=== PATIENT | male | born 1995 | race Two or more races ===

== ENCOUNTER 2023-01-25 17:29 | Emergency (ER) | payer OTHER ==
[~2023-01-25] VITALS: Ht 167.6 cm; Wt 65.8 kg
== END 2023-01-25 19:09 | disposition home or self-care (01) ==
LOC: ER 17:29
DX: S81.812A Laceration without foreign body, left lower leg, initial encounter (principal); W45.8XXA Other foreign body or object entering through skin, initial encounter; Y93.9 Activity, unspecified; Y92.89 Other specified places as the place of occurrence of the external cause; Y99.9 Unspecified external cause status